=== PATIENT | female | born 1950 | race Caucasian/White ===

== ENCOUNTER 2023-11-03 19:52 | Inpatient (IN) | payer OTHER ==
[~2023-11-03] VITALS: Ht 157.5 cm; Wt 101.6 kg
[2023-11-03 20:12] VITALS: BP_SYST 141; PULSE 102; RESP 20; TEMP 97; O2SAT 97
[2023-11-03 21:27] LABS: BASOPHILS # (AUTO) 0.1 K/uL (0.0-0.2); BASOPHILS % (AUTO) 0.5 % (0.0-2.0); EOSINOPHILS % (AUTO) 0.3 % (0.0-4.0); HEMATOCRIT 40.1 % (36-48); HEMOGLOBIN 13.7 g/dL (12.0-16.0); LYMPHOCYTES # (AUTO) 2.2 K/uL (1.0-5.5); LYMPHOCYTES % (AUTO) 14.8 % (20.5-51.5); MEAN CORPUSCULAR HEMOGLOBIN 31 pg (27-31); MEAN CORPUSCULAR HGB CONC 34 % (32-36); MEAN CORPUSCULAR VOLUME 90 fL (79.0-98.0); MONOCYTES # (AUTO) 0.6 K/uL (0.0-1.0); MONOCYTES % (AUTO) 4.1 % (1.7-9.3); NEUTROPHILS # (AUTO) 12.2 K/uL (1.8-7.7); NEUTROPHILS % (AUTO) 80.3 % (40.0-70.0); PLATELET COUNT (AUTO) 234 K/uL (130-430); RED BLOOD CELL COUNT(AUTO) 4.48 MIL/uL (4.2-6.2); WHITE BLOOD COUNT (AUTO) 15.2 K/uL (4.8-10.8)
[2023-11-03 21:45] LABS: ANION GAP 5 (5-15); CALCIUM 9.1 mg/dL (8.4-11.0); CARBON DIOXIDE 26 mmol/L (23-29); CHLORIDE 102 mmol/L (98-107); CREATININE 0.82 mg/dL (0.55-1.30); GLUCOSE 181 mg/dL (74-106); POTASSIUM 4.6 mmol/L (3.5-5.1); SODIUM SERUM 133 mmol/L (136-145); UREA NITROGEN, BLOOD 17 mg/dL (8-21)
[2023-11-03] MEDS: IPRATROPIUM/ALBUTEROL SULFATE 3 ML AMPUL.NEB (DUONEB) INH ONE (22:21)
[2023-11-03] MEDS ORDERED: cefTRIAXone 1 GM VIAL ONE (23:14)
[2023-11-03] MEDS: cefTRIAXone 1 GM in D5W 50 ML IV ONE (23:28)
[2023-11-03] MEDS: methylPREDNISolone SOD SUCC/PF 62.5 MG/ML VIAL IVP ONE (23:28)
[2023-11-03] MEDS ORDERED: PIPERACILLIN/TAZOBACTAM 3.375 GM/VIAL (ZOSYN) IV ONE (23:50)
[2023-11-04] VITALS (11 sets, daily range): BP systolic 108–154; PULSE 67–82; RESP 16–20; TEMP 95.8–97.9; O2SAT 94–99
[2023-11-04] MEDS: PIPERACILLIN/TAZO 3.375 GM in NS 50 ML IV ONE (00:09)
[2023-11-04] MEDS: 0.45% NS 250 ML IV ONE (00:18)
[2023-11-04] MEDS ORDERED: GLIP5TAB26 PO (01:19)
[2023-11-04] MEDS ORDERED: METF-379 PO (01:19)
[2023-11-04 01:20] LABS: COVID19 ANTIGEN SOFIA FIA NEGATIVE (NEGATIVE)
[2023-11-04 01:24] LABS: INFLUENZA TYPE A Negative (NEGATIVE); INFLUENZA TYPE B NEGATIVE (NEGATIVE)
[2023-11-04] MEDS ORDERED: NEU300 PO (02:23)
[2023-11-04] MEDS: NORMAL SALINE 5 ML DISP.SYRIN IVF SCH (06:56)
[2023-11-04] MEDS: glipiZIDE XL 5 MG TAB ( GLUCOTROL XL) PO SCH (08:47)
[2023-11-04] MEDS: metFORMIN HCL 500 MG TABLET PO SCH (08:47)
[2023-11-04] MEDS: 0.45% NACL 1,000 ML IV SCH (10:15)
[2023-11-04] MEDS: IPRATROPIUM/ALBUTEROL SULFATE 3 ML AMPUL.NEB (DUONEB) INH SCH (12:02)
[2023-11-04] MEDS: BUDESONIDE 0.5 MG/2 ML AMPUL.NEB INH SCH (19:42)
[2023-11-04] MEDS: cefTRIAXone 1 GM in D5W 50 ML IV SCH (21:00)
[2023-11-04] MEDS ORDERED: cefTRIAXone 1 GM VIAL IM SCH (21:00)
[2023-11-04] MEDS: GABAPENTIN 300 MG CAPSULE PO SCH (21:08)
[2023-11-05] VITALS (12 sets, daily range): BP systolic 120–135; PULSE 67–94; RESP 18–19; TEMP 96.6–98.6; O2SAT 94–100
[2023-11-05 05:52] LABS: BASOPHILS % (AUTO) 0.1 % (0.0-2.0); EOSINOPHILS % (AUTO) 0.3 % (0.0-4.0); HEMATOCRIT 38.3 % (36-48); HEMOGLOBIN 12.8 g/dL (12.0-16.0); LYMPHOCYTES # (AUTO) 4.8 K/uL (1.0-5.5); LYMPHOCYTES % (AUTO) 26.2 % (20.5-51.5); MEAN CORPUSCULAR HEMOGLOBIN 30 pg (27-31); MEAN CORPUSCULAR HGB CONC 33 % (32-36); MEAN CORPUSCULAR VOLUME 91 fL (79.0-98.0); MONOCYTES # (AUTO) 1.1 K/uL (0.0-1.0); MONOCYTES % (AUTO) 5.8 % (1.7-9.3); NEUTROPHILS # (AUTO) 12.4 K/uL (1.8-7.7); NEUTROPHILS % (AUTO) 67.6 % (40.0-70.0); PLATELET COUNT (AUTO) 223 K/uL (130-430); RED BLOOD CELL COUNT(AUTO) 4.21 MIL/uL (4.2-6.2); RED CELL DISTRIBUTION WIDTH 14.2 % (9.0-15.0); WHITE BLOOD COUNT (AUTO) 18.3 K/uL (4.8-10.8)
[2023-11-05 06:08] LABS: ANION GAP 11 (5-15); CALCIUM 8.7 mg/dL (8.4-11.0); CARBON DIOXIDE 25 mmol/L (23-29); CHLORIDE 98 mmol/L (98-107); CREATININE 0.79 mg/dL (0.55-1.30); GLUCOSE 222 mg/dL (74-106); POTASSIUM 3.8 mmol/L (3.5-5.1); SODIUM SERUM 134 mmol/L (136-145); UREA NITROGEN, BLOOD 20 mg/dL (8-21)
[2023-11-05] MEDS ORDERED: HYDROcodone/ACETAMIN 5-325 MG TAB (NORCO/ VICODIN) PO PRN (07:15)
[2023-11-05] MEDS ORDERED: LORazepam 2 MG/ML VIAL IVP PRN (07:15)
[2023-11-05] MEDS ORDERED: ACETAMINOPHEN 325 MG TABLET PO PRN ×2 (07:15→07:30)
[2023-11-05] MEDS ORDERED: HYDROcodone/ACETAMIN 10-325 MG TAB PO PRN (07:15)
[2023-11-05] MEDS ORDERED: NALOXONE HCL 0.4 MG/ML AMP (NARCAN) IVP PRN ×2 (07:15)
[2023-11-05] MEDS ORDERED: ONDANSETRON HCL 4 MG/2 ML VIAL IVP PRN (07:15)
[2023-11-05] MEDS: INSULIN REGULAR, HUMAN 100 UNITS/ML, 3 ML VIAL (humuLIN R) SUBCUT PRN (12:28)
[2023-11-05] MEDS ORDERED: BENZOCAINE/MENTHOL 1 EACH LOZENGE MM PRN (14:00)
[2023-11-05] MEDS: DOCUSATE SODIUM 100 MG CAPSULE PO ONE (17:29)
[2023-11-06] VITALS (7 sets, daily range): BP systolic 115–138; PULSE 79–81; RESP 16–18; TEMP 97–98.4; O2SAT 93–98
[2023-11-06 07:03] LABS: BASOPHILS % (AUTO) 0.2 % (0.0-2.0); EOSINOPHILS # (AUTO) 0.2 K/uL (0.0-0.4); EOSINOPHILS % (AUTO) 1.8 % (0.0-4.0); HEMATOCRIT 36.8 % (36-48); HEMOGLOBIN 12.6 g/dL (12.0-16.0); LYMPHOCYTES % (AUTO) 47.2 % (20.5-51.5); MEAN CORPUSCULAR HEMOGLOBIN 31 pg (27-31); MEAN CORPUSCULAR HGB CONC 34 % (32-36); MEAN CORPUSCULAR VOLUME 91 fL (79.0-98.0); MONOCYTES # (AUTO) 0.6 K/uL (0.0-1.0); MONOCYTES % (AUTO) 5.8 % (1.7-9.3); NEUTROPHILS # (AUTO) 4.8 K/uL (1.8-7.7); PLATELET COUNT (AUTO) 211 K/uL (130-430); RED BLOOD CELL COUNT(AUTO) 4.04 MIL/uL (4.2-6.2); RED CELL DISTRIBUTION WIDTH 14.5 % (9.0-15.0)
[2023-11-06 07:08] LABS: ANION GAP 10 (5-15); CALCIUM 8.4 mg/dL (8.4-11.0); CARBON DIOXIDE 25 mmol/L (23-29); CHLORIDE 101 mmol/L (98-107); CREATININE 0.65 mg/dL (0.55-1.30); GLUCOSE 109 mg/dL (74-106); POTASSIUM 3.7 mmol/L (3.5-5.1); SODIUM SERUM 136 mmol/L (136-145); UREA NITROGEN, BLOOD 12 mg/dL (8-21)
[2023-11-06 07:33] LABS: WHITE BLOOD COUNT (AUTO) 10.6 K/uL (4.8-10.8)
[2023-11-06 08:06] LABS: ERYTHROCYTE SEDIMENTATION RATE 47 MM/HR (0-20)
[2023-11-06] MEDS: DOCUSATE SODIUM 100 MG CAPSULE PO SCH (08:11)
[2023-11-06] MEDS ORDERED: CEFU250T85 PO (11:04)
[2023-11-06] MEDS ORDERED: BUDE180A IH (11:04)
[2023-11-06] MEDS ORDERED: ALBMDI INH (11:04)
== END 2023-11-06 15:00 | disposition home or self-care (01) | DRG 871 ==
LOC: SED 19:52 → SMU 22:47
PROVIDERS: ADMIT Specialist; ATTEND Specialist
DX: A41.9 Sepsis, unspecified organism (principal); J18.9 Pneumonia, unspecified organism; E87.1 Hypo-osmolality and hyponatremia; J45.901 Unspecified asthma with (acute) exacerbation; Z20.822 Contact with and (suspected) exposure to COVID-19; E11.65 Type 2 diabetes mellitus with hyperglycemia; E11.40 Type 2 diabetes mellitus with diabetic neuropathy, unspecified; J20.9 Acute bronchitis, unspecified; Z88.1 Allergy status to other antibiotic agents; Z98.891 History of uterine scar from previous surgery; Z79.84 Long term (current) use of oral hypoglycemic drugs; Z79.899 Other long term (current) drug therapy; Z91.018 Allergy to other foods
CPT/HCPCS: 36415; 71045; 80048; 82948; 83880; 84484; 85025; 85651; 87040; 94640; 94760; 99285; J0696; J1815; J2543; J2930; J7060; J7626